=== PATIENT | female | born 1990 | race Caucasian/White ===

== ENCOUNTER 2020-12-28 07:18 | Outpatient (CLI) | payer OTHER ==
--- NOTE | 2020-12-28 08:20 | MRI Report ---
PROCEDURE: Brain W/O INDICATIONS: HEADACHE TECHNIQUE: Noncontrast axial T1 spin echo, axial T2 fast spin echo, sagittal and axial FLAIR, coronal T2 fast sp in echo, axial gradient echo, axial diffusion and ADC through the brain. COMPARISON: None. FINDINGS: Image quality: Excellent. CSF Spaces: Basal cisterns are patent. No extra-axial fluid collections. Ventricles are normal in size and shape. Brain: No intracranial masses or hemorrhage. Large anterior left temporal cystic-appearing lesion pr esumably incidental arachnoid cyst, which measures approximately 3.8 x 2.8 cm Canseco/white matter interface is normal. Brainstem appears normal. Diffusion-weighted images demonstr ate no acute ischemic insult. No chronic ischemic insults. Normal intravascular flow voids are pres ent. Skull and face: Calvarium has normal marrow signal. Orbits appear normal. Sinuses: Sinuses and mastoids are clear. IMPRESSION: Large 3.8 cm presumed left temporal arachnoid cyst, probably incidental. If clinically warranted, def initive assessment with contrast-enhanced MRI could be performed as clinically warranted. Elsewhere, no acute signal abnormality. Reviewed by: Jason Phelps MD on 12/28/2020 8:18 AM PDT Approved by: Jason Phelps MD on 12/28/2020 8:18 AM PDT Station ID: [id number]
== END 2020-12-28 07:19 | disposition home or self-care (01) ==
LOC: DI 07:18
PROVIDERS: ATTEND Nurse Practitioner Family
DX: R51.9 Headache, unspecified (principal); G93.0 Cerebral cysts

== ENCOUNTER 2022-12-05 11:14 | Outpatient (CLI) | payer BC ==
--- NOTE | 2022-12-05 19:25 | XRAY Report ---
PROCEDURE: Chest 2 View X-Ray INDICATIONS: ASTHMA TECHNIQUE: 2 views of the chest were obtained. COMPARISON: None. FINDINGS: Surgical changes and devices: None. Lungs and pleura: No pleural effusions or pneumothorax. Lungs are clear. Mediastinum: Mediastinal contours appear normal. Heart size is normal. Bones and chest wall: No suspicious bony lesions. Overlying soft tissues appear unremarkable. IMPRESSION: Normal two-view chest x-ray Reviewed by: Vishnu Angeles MD on 12/05/2022 6:24 PM EDDIE Approved by: Vishnu Angeles MD on 12/05/2022 6:24 PM AKDT Station ID: [id number]
== END 2022-12-05 11:15 | disposition home or self-care (01) ==
LOC: DI.S 11:14
PROVIDERS: ATTEND Registered Nurse
DX: J45.20 Mild intermittent asthma, uncomplicated (principal)

== ENCOUNTER 2023-07-17 08:00 | Outpatient (CLI) | payer BC | END 2023-07-17 23:59 | disposition home or self-care (01) | LOC: LAB.S 08:00 | PROVIDERS: ATTEND Physician Assistant Medical | DX: N39.0 Urinary tract infection, site not specified (principal) | CPT/HCPCS: 87086; 87181 ==